=== PATIENT | male | born 1960 | race Caucasian/White ===

== ENCOUNTER → 2019-06-01 15:39 | Outpatient (CLI) | payer SELFPAY ==
--- NOTE | 2019-06-01 15:47 | XR_ITS ---
PROCEDURE: XR ANKLE WT BEARING RT MIN 3V CLINICAL INDICATION: pain Pain COMPARISON: No exams were available for comparison FINDINGS: Ankle joint has an unremarkable appearance. No fracture or dislocation. There is moderate pes planus IMPRESSION: 1. Negative ankle. 2. Pes planus Dictated by: Abbe Garcia MD 06/01/2019 18:01 Electronically signed by Abbe Garcia MD in [place] 06/01/2019 18:01
--- NOTE | 2019-06-01 15:47 | XR_ITS ---
PROCEDURE: XR ANKLE WT BEARING LT MIN 3V CLINICAL INDICATION: pain COMPARISON: No exams were available for comparison FINDINGS: No fracture or dislocation. Mortise is preserved and the talar dome has an unremarkable appearance. Incidental note made of mild pes planus IMPRESSION: 1. Negative ankle. 2. Pes planus Dictated by: Abbe Garcia MD 06/01/2019 18:02 Electronically signed by Abbe Garcia MD in [place] 06/01/2019 18:02
== END ==
PROVIDERS: PCP Pediatrics Adolescent Medicine; Visit Provider Podiatrist
DX: M25.572 Pain in left ankle and joints of left foot (principal); M25.571 Pain in right ankle and joints of right foot
CPT/HCPCS: 73610

== ENCOUNTER 2021-11-11 20:55 | Observation (INO) | payer SELFPAY ==
[2021-11-11 21:08] VITALS: BP 148/72; PULSE 78; RESP 18; TEMP 36.8; O2SAT 97; BMI 35.4
[2021-11-11 21:27] LABS: Basophils # 0.1 K/mm3 (0-0.2); Basophils % 0.5 % (0.1-2.0); Eosinophils # 0.2 K/mm3 (0.0-0.4); Hematocrit 43.3 % (42.0-52.0); Hemoglobin 14.4 g/dL (14.1-18.0); Lymphocytes # 1.5 K/mm3 (0.7-4.5); Lymphocytes % 15.1 % (10-50); Mean Corpuscular HGB Conc 33.2 g/dL (31.8-35.4); Mean Corpuscular Hemoglobin 29.9 pg (27.0-31.2); Mean Platelet Volume 8.2 fl (7.4-10.4); Monocytes # 0.6 K/mm3 (0.1-1.0); Monocytes % 5.7 % (1.7-9.3); Neutrophils # 7.4 K/mm3 (1.8-7.8); Neutrophils % 76.6 % (37.0-80.0); Platelet Count 227 K/mm3 (142-424); Red Blood Count 4.81 M/mm3 (4.60-6.20); Red Cell Distribution Width 12.9 % (11.5-17.5); White Blood Count 9.6 K/mm3 (4.8-10.8)
[2021-11-11 21:31] LABS: Alanine Aminotransferase 102 U/L (12-78); Albumin Level 3.6 g/dl (3.5-5.0); Albumin/Globulin Ratio 1.1 (1.1-1.8); Alkaline Phosphatase 218 U/L (38-126); Aspartate Amino Transferase 81 U/L (17-59); Bilirubin,Total 0.7 mg/dl (0.2-1.3); Blood Urea Nitrogen 13 mg/dl (9-20); Calcium 9.2 mg/dl (8.4-10.2); Carbon Dioxide 29 mmol/L (22.0-30.0); Creatinine Clearance Estimated 180 mL/min (50-200); Estimated Glomerular Filt Rate 115 ml/min (>60); GFR (African American) 140 ML/MIN (>60); Globulin 3.4 g/dL (1.3-3.2); Glucose 145 mg/dl (74-100); Potassium 3.6 mmoL/L (3.5-5.1); Sodium 138 mmol/L (136-145)
--- NOTE | 2021-11-11 21:31 | HMH.EDSKAF ---
ED Disposition Clinical Impression: Obesity (BMI 30-39.9), Elevated LFTs Cellulitis Qualifiers: Site of cellulitis: extremity Site of cellulitis of extremity: lower extremity Laterality: left Qualified Code(s): L03.116 - Cellulitis of left lower limb Disposition: Admitted as Observation Condition on Discharge: Fair Referrals: Wenceslao Loya MD [Primary Care Provider] - - Critical Care Critical Care Time: No Attestation: On , the high probability of a clinically significant, sudden or life threatening deterioration of the following system(s) required my full and direct attention, intervention and personal management. The time I documented below is in addition to time spent performing reported procedures but includes the following listed in this critical care notation. Medical Decision Making - Medical Records Medical records reviewed: Yes: I reviewed the patient's medical records. - Zhang Inquiry Pt receiving controlled substance: No Vital Signs: 11/11/21 21:08 Temperature 98.2 F Temperature Source Oral Pulse Rate [Apical] 78 Respiratory Rate 18 Blood Pressure [Right Arm] 148/72 H Blood Pressure Mean [Right Arm] 97 Blood Pressure Source [Right Arm] Automatic Cuff Blood Pressure Position [Right Arm] Sitting 02 Sat by Pulse Oximetry 97 Oxygen Delivery Method Room Air - Lab Data Lab results reviewed: Yes: I reviewed the patient's lab results. Lab Results 11/11/21 21:15: WBC 9.6, RBC 4.81, Hgb 14.4, Hct 43.3, MCV 90.0, MCH 29.9, MCHC 33.2, RDW 12.9, Plt Count 227, MPV 8.2, Neut % (Auto) 76.6, Lymph % (Auto) 15.1, [place] % (Auto) 5.7, Eos % (Auto) 2.0, Baso % (Auto) 0.5, Neut # (Auto) 7.4, Lymph # (Auto) 1.5, [place] # (Auto) 0.6, Eos # (Auto) 0.2, Baso # (Auto) 0.1 11/11/21 21:15: Sodium 138, Potassium 3.6, Chloride 102, Carbon Dioxide 29, Anion Gap 10.6, BUN 13, Creatinine 0.70, Estimated Creat Clear 180, Estimated GFR 115, Est GFR ( Amer) 140, Glucose 145 H, Calcium 9.2, Total Bilirubin 0.7, AST 81 H, ALT 102 H, Alkaline Phosphatase 218 H, C-Reactive Protein 169.2 H, Total Protein 7.0, Albumin 3.6, Globulin 3.4 H, Albumin/Globulin Ratio 1.1, Procalcitonin 0.098 11/11/21 21:15: ESR 47 H Result diagrams: 11/11/21 21:15 11/11/21 21:15 Orders (Tests/Meds): ED MEDICATIONS Generic Name Dose Route Start Last Admin Trade Name Freq PRN Reason Stop Dose Admin Miscellaneous 1 each 11/11/21 22:30 11/11/21 22:24 Vancomycin Consult Request NOTAPPLIC 12/11/21 22:29 1 each CONSULT PHARMACY NIC Administration ORDERS Category Date Time Status Wound Culture and Gram Stain Stat Micro 11/11/21 21:15 Results - Physician Consults Physician Consulted: sere Reason -: Admission Medical Decision Narrative: has cellulitis which has been not respnsive to abx Skin/Abscess/FB HPI - General Chief complaint: Extremity Injury, Lower Stated complaint: cellulitis left leg, hot swelling Time Seen by Provider: 11/11/21 21:31 Mode of Arrival: Ambulatory Source of Information: Patient, Spouse, Medical Record Limitations: No Limitations Description of Symptoms (Recalled from ER Triage Doc. by RN): pt states that he noticed redness in his left will Saturday and went to the [facility] ER on Saturday (11/08) and was diagnosed with Cellulitis, started on cephalexin 500mg qid and was told to return to the ER with any worsening redness or swelling/drainage. Pt states that this afternoon he noticed that the redness was swelling further up his leg and his wound on the front of his will was beginning to leak a clear drainage. Pt states that he called his PCP who recommended he come in Saturday, however, he feared that with the worsening redness he should be seen in the ER. - History of Present Illness HPI narrative: pt with progressive reddness to lt lower leg despite po abx was seen at [facility] ed - pt has been compliant with abx - pt w/o fever or vomiting - no known tick bite - no diabetes mitul
[2021-11-11 21:36] LABS: C-Reactive Protein 169.2 mg/L (0-4)
[2021-11-11 21:51] LABS: Procalcitonin 0.098 ng/mL (0.0-2.0)
[2021-11-11 21:52] LABS: Erythrocyte Sedimentation Rate 47 mm/hr (0-20)
[2021-11-11 21:59] LABS: Anion Gap 10.6 mEq/L (5-15); Chloride 102 mmol/L (98-107)
--- NOTE | 2021-11-11 22:24 | PC.NURSE ---
Dr. Cohn on the phone with Dr. Mejias
--- NOTE | 2021-11-11 22:35 | PC.NURSE ---
release of records request faxed to [facility] fax # [phone]
--- NOTE | 2021-11-11 22:44 | PC.NURSE ---
pt is not UTD on tetanus. He is refusing tetanus immunization at this time.
[2021-11-11 23:03] LABS: Lactic Acid 1.1 mmol/L (0.7-2.1)
[2021-11-11 23:26] LABS: Coronavirus 19, PCR Not Detected (NotDetected); Influenza A, PCR Not Detected (NotDetected); Influenza B, PCR Not Detected (NotDetected)
--- NOTE | 2021-11-11 23:55 | PC.NURSE ---
I walked into Mr. Ovalle' room and explained to him if he had ever been swabbed for COVID in the past his reponse was no he had never been swabbed for COVID before. I asked him if I could swab his nose due to him possibly being admitted here to [facility], that it is protocol that we have a COVID test done on all our admissions. Mr. Miles intially refused the COVID nasal swab, I explained to Mr. Miles that we couldn't admit him to the hospital without a resulted COVID test. Mr. Miles said that is fine I will stay here in the ER or go somewhere else and if I here it will be your alls fault. His was at the bedside during this conversation. I explained to him that we have protocols that we have to abide by and we have to test him for COVID prior to admission here. I reported to the ER nurses and Dr. Cohn that he refused the COVID test. Dr. Cohn went into Mr. Ovalle' room and asked him why he was refusing the COVID swab and he explained that he was worried how far the swab was going to go into his nose. Dr. Cohn told him we will do a gentle swab and that is when I walked into Mr. Ovalle' room and presented the COVID swab and gently swabbed both nostrils.
[2021-11-12] VITALS (7 sets, daily range): BP systolic 123–147; BP diastolic 69–81; PULSE 63–76; RESP 16–18; TEMP 36.4–37.3; O2SAT 95–99; BMI 35.4
--- NOTE | 2021-11-12 00:42 | PC.NURSE ---
patient up to floor via wheelchair @ this time.
--- NOTE | 2021-11-12 02:00 | PC.WOUNDNOTE ---
Left lower extremity
--- NOTE | 2021-11-12 04:52 | PC.NURSE ---
pt has rested since coming to floor, LLE noted to be red with a blister like area with yellowish drainage, has remained afebrile, remains on room air
[2021-11-12 07:22] LABS: Basophils % 0.4 % (0.1-2.0); Eosinophils # 0.2 K/mm3 (0.0-0.4); Eosinophils % 2.6 % (0.1-12.0); Hematocrit 39.6 % (42.0-52.0); Hemoglobin 13.3 g/dL (14.1-18.0); Lymphocytes # 1.3 K/mm3 (0.7-4.5); Lymphocytes % 16.6 % (10-50); Mean Corpuscular HGB Conc 33.5 g/dL (31.8-35.4); Mean Corpuscular Hemoglobin 29.9 pg (27.0-31.2); Mean Corpuscular Volume 89.3 fl (80-94); Mean Platelet Volume 8.3 fl (7.4-10.4); Monocytes # 0.6 K/mm3 (0.1-1.0); Monocytes % 7.2 % (1.7-9.3); Neutrophils # 5.9 K/mm3 (1.8-7.8); Neutrophils % 73.2 % (37.0-80.0); Platelet Count 195 K/mm3 (142-424); Red Blood Count 4.44 M/mm3 (4.60-6.20); White Blood Count 8.1 K/mm3 (4.8-10.8)
[2021-11-12 07:39] LABS: Alanine Aminotransferase 90 U/L (12-78); Albumin Level 3.1 g/dl (3.5-5.0); Alkaline Phosphatase 181 U/L (38-126); Anion Gap 7.7 mEq/L (5-15); Aspartate Amino Transferase 70 U/L (17-59); Bilirubin,Total 0.6 mg/dl (0.2-1.3); Blood Urea Nitrogen 12 mg/dl (9-20); Calcium 8.6 mg/dl (8.4-10.2); Carbon Dioxide 28 mmol/L (22.0-30.0); Chloride 105 mmol/L (98-107); Creatinine Clearance Estimated 180 mL/min (50-200); Estimated Glomerular Filt Rate 115 ml/min (>60); GFR (African American) 140 ML/MIN (>60); Globulin 3.1 g/dL (1.3-3.2); Glucose 110 mg/dl (74-100); Potassium 3.7 mmoL/L (3.5-5.1); Sodium 137 mmol/L (136-145); Total Protein,Serum 6.2 g/dl (6.3-8.2)
--- NOTE | 2021-11-12 08:15 | HMH.PHACONS ---
- Pharmacy Consult Date: 11/12/21 Time: 08:15 Referring provider: DR. BEAN Reason for Consult:: VANCOMYCIN DOSING Allergies and ADEs:: Allergies Allergy/AdvReac Type Severity Reaction Status Date / Time codeine Allergy Unknown Verified 11/12/21 00:56 Home Medications:: Home Medications Medication Instructions Recorded Confirmed Type Finasteride [Proscar] 5 mg PO DAILY 11/11/21 11/12/21 History cephALEXin [Cephalexin 500mg Tab] 500 mg PO QID 11/11/21 11/11/21 History Height: 1.78 m Weight: 112.128 kg Laboratory Results:: Laboratory Results - last 24 hr 11/11/21 21:15: WBC 9.6, RBC 4.81, Hgb 14.4, Hct 43.3, MCV 90.0, MCH 29.9, MCHC 33.2, RDW 12.9, Plt Count 227, MPV 8.2, Neut % (Auto) 76.6, Lymph % (Auto) 15.1, [place] % (Auto) 5.7, Eos % (Auto) 2.0, Baso % (Auto) 0.5, Neut # (Auto) 7.4, Lymph # (Auto) 1.5, [place] # (Auto) 0.6, Eos # (Auto) 0.2, Baso # (Auto) 0.1 11/11/21 21:15: Sodium 138, Potassium 3.6, Chloride 102, Carbon Dioxide 29, Anion Gap 10.6, BUN 13, Creatinine 0.70, Estimated Creat Clear 180, Estimated GFR 115, Est GFR ( Amer) 140, Glucose 145 H, Calcium 9.2, Total Bilirubin 0.7, AST 81 H, ALT 102 H, Alkaline Phosphatase 218 H, C-Reactive Protein 169.2 H, Total Protein 7.0, Albumin 3.6, Globulin 3.4 H, Albumin/Globulin Ratio 1.1, Procalcitonin 0.098 11/11/21 21:15: ESR 47 H 11/11/21 22:18: Lactate 1.1 11/11/21 22:32: SARS-CoV-2 (PCR) Not detected, Influenza A Untype (PCR) Not detected, Influenza Type B (PCR) Not detected 11/12/21 06:33: WBC 8.1, RBC 4.44 L, Hgb 13.3 L, Hct 39.6 L, MCV 89.3, MCH 29.9, MCHC 33.5, RDW 13.0, Plt Count 195, MPV 8.3, Neut % (Auto) 73.2, Lymph % (Auto) 16.6, [place] % (Auto) 7.2, Eos % (Auto) 2.6, Baso % (Auto) 0.4, Neut # (Auto) 5.9, Lymph # (Auto) 1.3, [place] # (Auto) 0.6, Eos # (Auto) 0.2, Baso # (Auto) 0.0 11/12/21 06:33: Sodium 137, Potassium 3.7, Chloride 105, Carbon Dioxide 28, Anion Gap 7.7, BUN 12, Creatinine 0.70, Estimated Creat Clear 180, Estimated GFR 115, Est GFR ( Amer) 140, Glucose 110 H D, Calcium 8.6, Total Bilirubin 0.6, AST 70 H, ALT 90 H, Alkaline Phosphatase 181 H, Total Protein 6.2 L, Albumin 3.1 L D, Globulin 3.1, Albumin/Globulin Ratio 1.0 L Medical History: Denies:: Cancer, Diabetes Mellitus Type 1, Diabetes Mellitus Type 2, MRSA Assessment and Plan - Assessment and plan all Dx Assessment and Plan for all problems:: Pharmacokinetic dosing service Objective: Patient: Floor: Age: 61 yo Serum creatinine: 0.70 mg/dL Height: 70.1 Inches Weight (kg): 112.1 Assessment: IBW (kg): 73.23 Dosing wt(kg): 112.1 Estimated Creatinine clearance (ml/min): 117.7 CRCL method: Cockcroft and Gault using ibw(default). Drug selected: Vancomycin Loading dose (mg): Vd (liters): 89.7 (factor used: 0.8 L/kg) Seferino (hr-1): 0.102 Half life (hrs): 6.80 CLvanco=?? 9.149 L/hr Recommended dose: 1750 mg Interval: 8 hrs Infusion time (hrs): 2.0 Predicted peak (mcg/mL): 31.6 Predicted trough (mcg/mL): 17.14 Total body weight is being used for vancomycin dosing. Recommendations: Give Vancomycin 1750 mg q 8 hrs with an expected Cpeak of 31.6 mcg/ml and an expected Ctrough of 17.14 mcg/ml AUC 0-24 /RALPH Data: RALPH 0.5 mcg/mL:?? AUC/RALPH:? 1147.7 RALPH 1.0 mcg/mL:?? AUC/RALPH:? 573.8 --------- RALPH 1.5 mcg/mL:?? AUC/RALPH:? 382.6 RALPH 2.0 mcg/mL:?? AUC/RALPH:? 286.9 Thank you for the consult, will continue to follow. -LEXUS DWYER, ROBERTOD
--- NOTE | 2021-11-12 08:19 | HMH.PHAINT ---
MEDICATION RECONCILIATION COMPLETED ON PATIENT USING EXTERNAL FILL HISTORY FROM PHARMACY. -LEXUS DWYER, ROBERTOD
--- NOTE | 2021-11-12 14:25 | HMH.HP ---
*Admission Date: 11/11/21 *Chief complaint: infected leg *History of present illness: Veto is a 61-year-old white male who has generally been in good health. About 2 weeks ago he first noticed a small red bump on his left lower leg that seemed to come and go for a few days but started becoming more red and swollen about 5 days ago. No history of injury. He went to the [place] emergency room and was started on Keflex for cellulitis . Since then the redness and swelling in his leg has gotten worse and is spread up his leg. Yesterday he started getting some drainage from the wound on his leg and therefore came to the emergency room. Because he has failed outpatient antibiotics, he is being admitted for treatment of IV vancomycin for presumed MRSA infection. He is not diabetic [facility] History Medical History: Reports:: Diabetes Mellitus Type 1 Denies:: Cancer, Diabetes Mellitus Type 2, MRSA *Have you ever received a pneumonia vaccine?: No *Have you received a flu vaccine this season?: No Other Medical History: Reports: Other (Enlarged prostate) Laterality Cases: Bilateral: Myringotomy (Ear Tubes), Tonsillectomy Amputation: No Fractures: No - *Social History Smoking Status: Never smoker Alcohol Intake: never *Occupational Status:: employed ([employer]) *Travel in the last 8 weeks: None Family Hx:: No significant family history Review of Systems - Constitutional Reports fever(s), Denies body ache(s), Denies chills - Eyes Denies change in vision - ENT Denies nasal congestion, Denies sore throat - *Cardiovascular Denies chest pain, Denies shortness of breath - *Respiratory Denies chest congestion, Denies cough - *Gastrointestinal Denies abdominal pain, Denies change in bowel habits - *Genitourinary Reports other (Decreased urinary stream) - *Musculoskeletal Denies joint pain - Integumentary/Breasts Reports other (See HPI) - *Neurologic Denies seizure-like activity Meds Home Medications Medication Instructions Recorded Confirmed Type Finasteride [Proscar] 5 mg PO DAILY 11/11/21 11/12/21 History cephALEXin [Cephalexin 500mg Tab] 500 mg PO QID 11/11/21 11/11/21 History Allergies Allergy/AdvReac Type Severity Reaction Status Date / Time codeine Allergy Unknown Verified 11/12/21 00:56 Exam Vital signs and Labs for Last 24 Hours: Temp Pulse Resp BP Pulse Ox 97.9 F 74 16 129/69 96 11/12/21 08:00 11/12/21 08:00 11/12/21 08:00 11/12/21 08:00 11/12/21 08:00 Laboratory Results - last 24 hr 11/11/21 21:15: WBC 9.6, RBC 4.81, Hgb 14.4, Hct 43.3, MCV 90.0, MCH 29.9, MCHC 33.2, RDW 12.9, Plt Count 227, MPV 8.2, Neut % (Auto) 76.6, Lymph % (Auto) 15.1, [place] % (Auto) 5.7, Eos % (Auto) 2.0, Baso % (Auto) 0.5, Neut # (Auto) 7.4, Lymph # (Auto) 1.5, [place] # (Auto) 0.6, Eos # (Auto) 0.2, Baso # (Auto) 0.1 11/11/21 21:15: Sodium 138, Potassium 3.6, Chloride 102, Carbon Dioxide 29, Anion Gap 10.6, BUN 13, Creatinine 0.70, Estimated Creat Clear 180, Estimated GFR 115, Est GFR ( Amer) 140, Glucose 145 H, Calcium 9.2, Total Bilirubin 0.7, AST 81 H, ALT 102 H, Alkaline Phosphatase 218 H, C-Reactive Protein 169.2 H, Total Protein 7.0, Albumin 3.6, Globulin 3.4 H, Albumin/Globulin Ratio 1.1, Procalcitonin 0.098 11/11/21 21:15: ESR 47 H 11/11/21 22:18: Lactate 1.1 11/11/21 22:32: SARS-CoV-2 (PCR) Not detected, Influenza A Untype (PCR) Not detected, Influenza Type B (PCR) Not detected 11/12/21 06:33: WBC 8.1, RBC 4.44 L, Hgb 13.3 L, Hct 39.6 L, MCV 89.3, MCH 29.9, MCHC 33.5, RDW 13.0, Plt Count 195, MPV 8.3, Neut % (Auto) 73.2, Lymph % (Auto) 16.6, [place] % (Auto) 7.2, Eos % (Auto) 2.6, Baso % (Auto) 0.4, Neut # (Auto) 5.9, Lymph # (Auto) 1.3, [place] # (Auto) 0.6, Eos # (Auto) 0.2, Baso # (Auto) 0.0 11/12/21 06:33: Sodium 137, Potassium 3.7, Chloride 105, Carbon Dioxide 28, Anion Gap 7.7, BUN 12, Creatinine 0.70, Estimated Creat Clear 180, Estimated GFR 115, Est GFR ( Amer) 140, Glucose 110 H D, Calcium
[2021-11-13 04:00] VITALS: BP 122/77; PULSE 64; RESP 16; TEMP 37; O2SAT 94
--- NOTE | 2021-11-13 04:32 | PC.NURSE ---
Pt has rested will this shift. Alert and oriented x4. No acute events. Lung sounds are clear bilaterally and tolerating room air well. He slept with his home CPAP on. Pt was up to chair for a few hours at the beginning of shift. LLE remains swollen and red with yellow drainage. He has had no c/o pain or discomfort. Peripheral pulses remain palpable. Remains afebrile. VSS.
[2021-11-13 05:00] VITALS: BMI 35.6
[2021-11-13 06:59] LABS: Alanine Aminotransferase 89 U/L (12-78); Albumin Level 3.1 g/dl (3.5-5.0); Alkaline Phosphatase 191 U/L (38-126); Aspartate Amino Transferase 50 U/L (17-59); Bilirubin,Indirect 0.6 mg/dL (0.0-0.9); Bilirubin,Total 0.6 mg/dl (0.2-1.3); Bilirubin,Unconjugated 0.8 mg/dL (0.0-1.1); Total Protein,Serum 6.3 g/dl (6.3-8.2)
[2021-11-13 08:00] VITALS: BP 155/82; PULSE 70; RESP 17; TEMP 36.9; O2SAT 91
[2021-11-13 09:20] LABS: Vancomycin,Trough 14.9 ug/mL (5.0-10.0)
--- NOTE | 2021-11-13 10:37 | HMH.ACPN2 ---
<Ethel Almanza - Last Filed: 11/13/21 10:37> Internal Medicine - PN: Subj *Date: 11/13/21 *Time: 10:37 Interval history: Pt feels a little better. He thinks the swelling and the redness in his left leg has improved. He states it is no longer up into the thigh. He has some discomfort. The wound continues to drain. He denies any chest pain and shortness of breath. He is able to eat without difficulty. Laboratory data this a.m. reveal a white blood cell count of 8100 with a hemoglobin of 13.3 and hematocrit of 39.6. Liver function studies have improved with an AST of 50 which is normal, ALT at 89 and alkaline phosphatase of 191. Total bilirubin is normal. Exam Vital signs and Labs for Last 24 Hours: Temp Pulse Resp BP Pulse Ox 98.5 F 70 17 155/82 H 91 L 11/13/21 08:00 11/13/21 08:00 11/13/21 08:00 11/13/21 08:00 11/13/21 08:00 Laboratory Results - last 24 hr 11/13/21 06:29: Total Bilirubin 0.6, Direct Bilirubin 0.0, Conjugated Bilirubin 0.0, Indirect Bilirubin 0.6, Unconjugated Bilirubin 0.8, AST 50 D, ALT 89 H, Alkaline Phosphatase 191 H, Total Protein 6.3, Albumin 3.1 L 11/13/21 08:24: Vancomycin Trough 14.9 H I & O for Last 24 hours: Intake & Output 11/10/21 11/11/21 11/12/21 11/13/21 11:59 11:59 11:59 11:59 Intake Total 805 / 805 2970 / 2970 Output Total 350 / 350 1700 / 1700 Balance 455 / 455 1270 / 1270 Weight 247 lb 3.2 oz 248 lb 9.6 oz Microbiology Reports for the Last 24 Hours: Microbiology 11/11/21 21:15 Leg,Left Gram Stain - Final 11/11/21 21:15 Leg,Left Wound Culture - Preliminary NO GROWTH AFTER 24 HOURS - Constitutional no acute distress Comments: Sitting up in the bed and appears comfortable. - *Routine Respiratory Exam Present: CTA bilaterally (Anteriorly and posteriorly) - *Routine Cardiovascular Exam Present: RRR - *Routine Abdominal Exam Present: soft, normoactive bowel sounds. Absent: tenderness - *Routine Extremities Exam Present: edema Comments: Right lower leg appears normal. Left lower extremity with edema of the foot up through the thigh. Erythema from the ankle up to the knee. Draining wound on anterior lower left extremity. - *Routine Neurological Exam Present: alert, oriented X3 Assessment and Plan (1) Cellulitis Status: Acute Qualifiers: Site of cellulitis: extremity Site of cellulitis of extremity: lower extremity Laterality: left Qualified Code(s): L03.116 - Cellulitis of left lower limb Category: Medical Code(s): L03.90 - Cellulitis, unspecified (2) Elevated LFTs Status: Acute Category: Medical Code(s): R79.89 - Other specified abnormal findings of blood chemistry (3) BPH (benign prostatic hyperplasia) Status: Acute Category: Medical Code(s): N40.0 - Benign prostatic hyperplasia without lower urinary tract symptoms - Assessment and plan all Dx Assessment and Plan for all problems:: Culture results are negative thus far. Continue with current antibiotic coverage. <Stevie Mejias - Last Filed: 11/14/21 13:13> Internal Medicine - PN: Subj *Date: 11/13/21 *Time: 13:12 Exam Vital signs and Labs for Last 24 Hours: Temp Pulse Resp BP Pulse Ox 98.6 F 74 18 147/85 H 93 L 11/14/21 08:00 11/14/21 08:00 11/14/21 08:00 11/14/21 08:00 11/14/21 08:00 Laboratory Results - last 24 hr 11/13/21 13:30: Vancomycin Peak 21.0 11/14/21 06:58: Sodium 136, Potassium 4.4, Chloride 105, Carbon Dioxide 27, Anion Gap 8.4, BUN 11, Creatinine 0.70, Estimated Creat Clear 182, Estimated GFR 115, Est GFR ( Amer) 140, Glucose 109 H, Calcium 8.7, Total Bilirubin 0.3, AST 42, ALT 79 H, Alkaline Phosphatase 191 H, Total Protein 6.6, Albumin 3.2 L, Globulin 3.4 H, Albumin/Globulin Ratio 0.9 L I & O for Last 24 hours: Intake & Output 11/12/21 11/13/21 11/14/21 11/15/21 11:59 11:59 11:59 11:59 Intake Total 805 / 805 3210 / 32
--- NOTE | 2021-11-13 11:14 | HMH.PTWOUND ---
Rehab Inpt Wound Evaluation Rehab IP Wound Evaluation Start: 11/13/21 08:31 Freq: ONCE Status: Active Protocol: Document 11/13/21 11:10 PHOSANTY (Rec: 11/13/21 11:14 PHORNE [id number]) Rehab PT Wound Assessment Subjective Subjective 61 yowm adm to [facility] with L CHIRAG cellulitis. He reports wound began from a cpouple little red spots on my leg, and he failed outpatient treatment with oral abx. He reports pain only with standing. He was independent with all mobility and working 10 hr shifts prior to adm. Wound Left Anterior Kim Wound Type Blister Is This a Chronic Wound No Wound Length (cm) 8.5 Wound Width (cm) 8.0 Wound Bed Appearance Beefy Red,Yellow Wound Margins Description Indistinct Surrounding Tissue Appearance Bright Red Edema Type Pitting Edema Degree 2+ Query Text:1+ Trace, Barely Detectable, Rebound 15-30 seconds 2+ Moderate, Slight Indentation, Rebound 10-20 seconds 3+ Deep, Deeper Indentation, Rebound > 30 seconds 4+ Very Deep, Rebound > 60 seconds Edema Appearance Weeping Wound Drainage Description Yellow Drainage Amount Moderate Drainage Odor No Odor Wound Topical Solution/Irrigant Saline Irrigant Primary Dressing Unna Boot Wound Secondary Dressing Type Gauze Roll/Wrap,Adhering Gauze Roll Wound Debridement Method Gauze,Mechanical Wound Debridement Amount of Tissue Minimal Removed Dressing Change Patient Tolerance Tolerated Well Plan/Recommendation Comment Continue unna boot at this time changed every 3-4 days depending on drainage amts. Eval Complexity Eval Charge Codes 61733 - Moderate Complexity PHYSICIAN CERTIFICATION: I certify the specified therapy services for Veto Miles are required, authorized, and reviewed every 30 days.
--- NOTE | 2021-11-13 14:23 | HMH.PHACONS ---
- Pharmacy Consult Date: 11/13/21 Time: 14:23 Referring provider: DR WEBSTER Reason for Consult:: VANCOMYCIN DOSING Allergies and ADEs:: Allergies Allergy/AdvReac Type Severity Reaction Status Date / Time codeine Allergy Unknown Verified 11/12/21 00:56 Home Medications:: Home Medications Medication Instructions Recorded Confirmed Type Finasteride [Proscar] 5 mg PO DAILY 11/11/21 11/12/21 History cephALEXin [Cephalexin 500mg Tab] 500 mg PO QID 11/11/21 11/11/21 History Height: 1.78 m Weight: 112.763 kg Laboratory Results:: Laboratory Results - last 24 hr 11/13/21 06:29: Total Bilirubin 0.6, Direct Bilirubin 0.0, Conjugated Bilirubin 0.0, Indirect Bilirubin 0.6, Unconjugated Bilirubin 0.8, AST 50 D, ALT 89 H, Alkaline Phosphatase 191 H, Total Protein 6.3, Albumin 3.1 L 11/13/21 08:24: Vancomycin Trough 14.9 H 11/13/21 13:30: Vancomycin Peak 21.0 Medical History: Reports:: Diabetes Mellitus Type 1 Denies:: Cancer, Diabetes Mellitus Type 2, MRSA Assessment and Plan (1) Cellulitis Status: Acute Qualifiers: Site of cellulitis: extremity Site of cellulitis of extremity: lower extremity Laterality: left Qualified Code(s): L03.116 - Cellulitis of left lower limb Category: Medical Code(s): L03.90 - Cellulitis, unspecified (2) Elevated LFTs Status: Acute Category: Medical Code(s): R79.89 - Other specified abnormal findings of blood chemistry (3) BPH (benign prostatic hyperplasia) Status: Acute Category: Medical Code(s): N40.0 - Benign prostatic hyperplasia without lower urinary tract symptoms - Assessment and plan all Dx Assessment and Plan for all problems:: VANCOMYCIN PK LEVELS 11/13/21 08:24: Vancomycin Trough 14.9 11/13/21 13:30: Vancomycin Peak 21.0 VANCOMYCIN THERAPEUTIC LEVELS OBTAINED TODAY. PATIENT'S TROUGH WAS 14.9 MCG/ML (11/13/21 @ 08:24) AND PEAK WAS 21.0 MCG/ML (11/13/21 @ 13:30). THE PEAK WAS DRAWN AN HOUR LATE. BASED ON THE TROUGH, THE RECOMMENDATION IS TO CONTINUE THE CURRENT THERAPY OF VANCOMYCIN 1750 MG IV EVERY 8 HOURS.
[2021-11-13 16:00] VITALS: BP 140/85; PULSE 65; RESP 16; TEMP 37.1; O2SAT 93
--- NOTE | 2021-11-13 18:37 | PC.NURSE ---
PT IS AOX4, ABLE TO MAKE NEEDS KNOWN TO STAFF, HAS TOLERATED SITING UP TO A CHAIR FOR MOST OF SHIFT, TOLERATING DIET WELL, UNNA BOOT NOTED TO LOWER EXTREMITY. HAS NOT REQUIRED O2 SUPPORT THIS SHIFT.
[2021-11-13 20:00] VITALS: BP 144/47; PULSE 69; RESP 16; TEMP 37; O2SAT 96
[2021-11-14 04:00] VITALS: BP 133/71; PULSE 71; RESP 16; TEMP 37; O2SAT 98
--- NOTE | 2021-11-14 04:06 | PC.NURSE ---
Pt is alert and oriented x4, pt uses CPAP from home during the night. Pt uses urinal independently, ambulates to the bathroom with standby assist. Pt has unna boot noted to left lower leg, pedal pulses palpated. Pt has had no complaints this shift.
[2021-11-14 04:54] VITALS: BMI 35.6
[2021-11-14 07:41] LABS: Alanine Aminotransferase 79 U/L (12-78); Albumin Level 3.2 g/dl (3.5-5.0); Albumin/Globulin Ratio 0.9 (1.1-1.8); Alkaline Phosphatase 191 U/L (38-126); Anion Gap 8.4 mEq/L (5-15); Aspartate Amino Transferase 42 U/L (17-59); Bilirubin,Total 0.3 mg/dl (0.2-1.3); Blood Urea Nitrogen 11 mg/dl (9-20); Calcium 8.7 mg/dl (8.4-10.2); Carbon Dioxide 27 mmol/L (22.0-30.0); Chloride 105 mmol/L (98-107); Creatinine Clearance Estimated 182 mL/min (50-200); Estimated Glomerular Filt Rate 115 ml/min (>60); GFR (African American) 140 ML/MIN (>60); Globulin 3.4 g/dL (1.3-3.2); Glucose 109 mg/dl (74-100); Potassium 4.4 mmoL/L (3.5-5.1); Sodium 136 mmol/L (136-145); Total Protein,Serum 6.6 g/dl (6.3-8.2)
[2021-11-14 08:00] VITALS: BP 147/85; PULSE 74; RESP 18; TEMP 37; O2SAT 93
--- NOTE | 2021-11-14 08:22 | HMH.ACPN2 ---
<Ethel Almanza - Last Filed: 11/14/21 08:22> Internal Medicine - PN: Subj *Date: 11/14/21 *Time: 08:22 Interval history: Patient overall feels better. He states he did sleep last night. He had it a boot placed on the left lower extremity yesterday. He is has been out of bed and ambulates independently. He eats without difficulty. He does have to void frequently. IV fluids remained at 75 an hour. Today's labs show normal renal function. Liver function studies continue to improve. With an AST of 42 and ALT of 79. Blood and wound cultures show no growth. Exam Vital signs and Labs for Last 24 Hours: Temp Pulse Resp BP Pulse Ox 98.6 F 71 16 133/71 98 11/14/21 04:00 11/14/21 04:00 11/14/21 04:00 11/14/21 04:00 11/14/21 04:00 Laboratory Results - last 24 hr 11/13/21 08:24: Vancomycin Trough 14.9 H 11/13/21 13:30: Vancomycin Peak 21.0 11/14/21 06:58: Sodium 136, Potassium 4.4, Chloride 105, Carbon Dioxide 27, Anion Gap 8.4, BUN 11, Creatinine 0.70, Estimated Creat Clear 182, Estimated GFR 115, Est GFR ( Amer) 140, Glucose 109 H, Calcium 8.7, Total Bilirubin 0.3, AST 42, ALT 79 H, Alkaline Phosphatase 191 H, Total Protein 6.6, Albumin 3.2 L, Globulin 3.4 H, Albumin/Globulin Ratio 0.9 L I & O for Last 24 hours: Intake & Output 11/11/21 11/12/21 11/13/21 11/14/21 11:59 11:59 11:59 11:59 Intake Total 805 / 805 3210 / 3210 2474 / 2474 Output Total 350 / 350 1700 / 1700 2250 / 2250 Balance 455 / 455 1510 / 1510 224 / 224 Weight 247 lb 3.2 oz 248 lb 9.6 oz 249 lb Microbiology Reports for the Last 24 Hours: Microbiology 11/11/21 22:18 Blood Blood Culture - Preliminary NO GROWTH AFTER 48 HOURS 11/11/21 22:18 Blood Blood Culture - Preliminary NO GROWTH AFTER 48 HOURS 11/11/21 21:15 Leg,Left Gram Stain - Final 11/11/21 21:15 Leg,Left Wound Culture - Preliminary NO GROWTH AFTER 48 HOURS - Constitutional no acute distress - *Routine Respiratory Exam Present: wheezes (infrequent wheeze) - *Routine Cardiovascular Exam Present: RRR - *Routine Abdominal Exam Present: soft, normoactive bowel sounds. Absent: tenderness - *Routine Extremities Exam Present: edema Comments: No edema of the right lower leg. Left lower extremity with Unna boot in place. Calf circumference is decreased. Less edema and erythema above or below the Unna boot. He has good bilateral pedal pulses. - *Routine Neurological Exam Present: alert, oriented X3 Assessment and Plan (1) Cellulitis Status: Acute Qualifiers: Site of cellulitis: extremity Site of cellulitis of extremity: lower extremity Laterality: left Qualified Code(s): L03.116 - Cellulitis of left lower limb Category: Medical Code(s): L03.90 - Cellulitis, unspecified (2) Elevated LFTs Status: Acute Category: Medical Code(s): R79.89 - Other specified abnormal findings of blood chemistry (3) BPH (benign prostatic hyperplasia) Status: Acute Category: Medical Code(s): N40.0 - Benign prostatic hyperplasia without lower urinary tract symptoms - Assessment and plan all Dx Assessment and Plan for all problems:: Patient is ready for discharge with p.o. antibiotics <Stevie Mejias - Last Filed: 11/14/21 13:14> Internal Medicine - PN: Subj *Date: 11/14/21 *Time: 13:13 Exam Vital signs and Labs for Last 24 Hours: Temp Pulse Resp BP Pulse Ox 98.6 F 74 18 147/85 H 93 L 11/14/21 08:00 11/14/21 08:00 11/14/21 08:00 11/14/21 08:00 11/14/21 08:00 Laboratory Results - last 24 hr 11/13/21 13:30: Vancomycin Peak 21.0 11/14/21 06:58: Sodium 136, Potassium 4.4, Chloride 105, Carbon Dioxide 27, Anion Gap 8.4, BUN 11, Creatinine 0.70, Estimated Creat Clear 182, Estimated GFR 115, Est GFR ( Amer) 140, Glucose 109 H, Calcium 8.7, Total Bilirubin 0.3, AST 42, ALT 79 H, Alkaline Phosphata
--- NOTE | 2021-11-14 09:30 | HMH.PHAINT ---
DISCHARGE MEDICATION COUNSELING PROVIDED. DISCUSSED STOPPING THE KEFLEX AND THE NEW SHORT-COURSE ZYVOX PRESCRIPTION. DISCUSSED TO TAKE TWICE DAILY WITH OR WITHOUT FOOD, MAY CAUSE UPSET STOMACH/VOMITING/DIARRHEA SO TAKING WITH FOOD MAY HELP, RARELY COULD CAUSE RASH. PATIENT ASKED HOW LONG HE WAS SUPPOSED TO TAKE AND WAS ADVISED FOR 10 DAYS. WAS ALSO ADVISED TO START TONIGHT SINCE HE RECEIVED A VANCOMYCIN DOSE PRIOR TO DISCHARGE. PATIENT EXPRESSED CONCERN OVER COPAY AT [facility] AND WAS LOOKING IN TO HAVING PRESCRIPTION FILLED ELSEWHERE. WAS ADVISED TO LET NURSE KNOW WHERE HE ULTIMATELY WANTS THE PRESCRIPTION SENT AND TO HAVE NURSE CALL PHARMACY TO CHANGE THE PRESCRIPTION DESTINATION. PATIENT ENDORSED NO FURTHER QUESTIONS AT THIS TIME.
--- NOTE | 2021-11-14 09:31 | PC.NURSE ---
patient currently getting iv vancomycin before discharge. patient is to leave unna boots on until follow up appointment with primary care porvider for them to decide if they wish to continue that treatment.
--- NOTE | 2021-11-14 22:13 | HMH.DCSUM ---
General - General Admission date:: 11/12/21 <Stevie Mejias - 11/16/21 22:42> 11/12/21 <Jennifer Dupont - 11/14/21 22:17> Discharge date: 11/14/21 <CresencioJennifer - 11/14/21 22:17> HPI HPI: Veto is a 61-year-old white male who has generally been in good health. About 2 weeks ago he first noticed a small red bump on his left lower leg that seemed to come and go for a few days but started becoming more red and swollen about 5 days ago. No history of injury. He went to the [facility] emergency room and was started on Keflex for cellulitis . Since then the redness and swelling in his leg has gotten worse and is spread up his leg. Yesterday he started getting some drainage from the wound on his leg and therefore came to the emergency room. Because he has failed outpatient antibiotics, he is being admitted for treatment of IV vancomycin for presumed MRSA infection. He is not diabetic <Jennifer Dupont - 11/14/21 22:17> Hospital Course Hospital Course: The patient had cellulitis of her left lower leg which failed outpatient treatment. He was empirically started on IV vancomycin. He had mildly elevated liver functions of undetermined etiology. He was continued on finasteride for his history of BPH. By 11/13/2021, the swelling and redness in his leg did improve. LFTs improved. PT was consulted for wound evaluation. His wound and blood culture showed no growth, likely inhibited by the oral antibiotics he was taking prior to admission. He improved with MRSA coverage and was stable to be discharged home on Zyvox. He will follow-up with his PCP in 3 to 4 days. <Jennifer Dupont - 11/14/21 22:17> Objective Vital signs: Temp Pulse Resp BP Pulse Ox 98.6 F 74 18 147/85 H 93 L 11/14/21 08:00 11/14/21 08:00 11/14/21 08:00 11/14/21 08:00 11/14/21 08:00 <MagalieStevie Fei - 11/16/21 22:42> Temp Pulse Resp BP Pulse Ox 98.6 F 74 18 147/85 H 93 L 11/14/21 08:00 11/14/21 08:00 11/14/21 08:00 11/14/21 08:00 11/14/21 08:00 <Jennifer Dupont - 11/14/21 22:17> Narrative: - Constitutional no acute distress - *Routine Respiratory Exam Present: wheezes (infrequent wheeze) - *Routine Cardiovascular Exam Present: RRR - *Routine Abdominal Exam Present: soft, normoactive bowel sounds. Absent: tenderness - *Routine Extremities Exam Present: edema Comments: No edema of the right lower leg. Left lower extremity with Unna boot in place. Calf circumference is decreased. Less edema and erythema above or below the Unna boot. He has good bilateral pedal pulses. - *Routine Neurological Exam Present: alert, oriented X3 <Jennifer Dupont - 11/14/21 22:17> Results Labs on day of discharge: Preliminary micro results at discharge 11/11/21 22:18 Blood Culture - Preliminary Blood NO GROWTH AFTER 48 HOURS 11/11/21 22:18 Blood Culture - Preliminary Blood NO GROWTH AFTER 48 HOURS <Stevie Mejias - 11/16/21 22:42> Labs from last 24 hours 11/14/21 06:58 Sodium 136 Potassium 4.4 Chloride 105 Carbon Dioxide 27 Anion Gap 8.4 BUN 11 Creatinine 0.70 Estimated Creat Clear 182 Estimated GFR 115 Est GFR ( Amer) 140 Glucose 109 H Calcium 8.7 Total Bilirubin 0.3 AST 42 ALT 79 H Alkaline Phosphatase 191 H Total Protein 6.6 Albumin 3.2 L Globulin 3.4 H Albumin/Globulin Ratio 0.9 L Preliminary micro results at discharge 11/11/21 21:15 Wound Culture - Preliminary Leg,Left NO GROWTH AFTER 72 HOURS 11/11/21 22:18 Blood Culture - Preliminary Blood NO GROWTH AFTER 48 HOURS 11/11/21 22:18 Blood Culture - Preliminary Blood NO GROWTH AFTER 48 HOURS <Jennifer Dupont - 11/14/21 22:17> DS: Diagnosis - Discharge Diagnosis (1) Cellulitis Status: Acute (2) Elevated LFTs Status: Acute (3) BPH (benign prostatic hyperplasia) Status: Acute <Jennifer Dupont - 11/14/21 22:13> (1)
--- NOTE | 2021-11-15 11:50 | CARE MANAGER ---
Spoke with patient following hospital discharge. 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 He denies any issues or concerns. Transferred to nursing on 2nd floor as he is missing a medication. NIC White
== END 2021-11-14 13:21 | disposition home or self-care (01) ==
LOC: ER 22:44 → 2ND 11-12 00:41
PROVIDERS: Admitting Provider Family Medicine; Emergency Provider Emergency Medicine; PCP Family Medicine; Visit Provider Family Medicine
DX: L03.116 Cellulitis of left lower limb; N40.0 Benign prostatic hyperplasia without lower urinary tract symptoms; Z20.822 Contact with and (suspected) exposure to COVID-19
CPT/HCPCS: 36415; 80053; 80076; 80202; 83605; 84145; 85025; 85651; 86140; 87040; 87070; 87077; 87186; 87205; 99285; C9803; G0378; J3370; U0003; U0005

== ENCOUNTER → 2021-12-15 10:59 | Outpatient (CLI) | payer SELFPAY ==
--- NOTE | 2021-12-15 11:11 | US_ITS ---
FINAL REPORT CLINICAL HISTORY: ABCESS OF LT LEG FINDINGS: Sonographic images were obtained of the area of interest at the anterior aspect of the left lower leg. There is extensive subcutaneous soft tissue edema. No abscess is identified. IMPRESSION: Extensive subcutaneous soft tissue edema with no abscess. Reviewed, Interpreted and Dictated by Anthony Thomas MD Transcribed by Jazmin Quiñones Authenticated and [facility]
== END ==
PROVIDERS: Visit Provider Family Medicine
DX: L02.416 Cutaneous abscess of left lower limb
CPT/HCPCS: 76882

== ENCOUNTER 2022-01-14 22:46 | Emergency (ER) | payer SELFPAY ==
[2022-01-14 22:47] VITALS: BP 159/110; PULSE 109; RESP 24; TEMP 36.8; O2SAT 100; BMI 34.8
--- NOTE | 2022-01-14 23:22 | PC.NURSE ---
NIC White and NIC Christianson at
--- NOTE | 2022-01-14 23:30 | PC.NURSE ---
Updated Dr. Cohn on pt condition and triage. Called [facility] for med records.
--- NOTE | 2022-01-14 23:32 | HMH.EDUROGM ---
Discharge Plan Disposition Patient Disposition: Home, Self-Care Prescriptions Prescriptions: No Action finasteride 5 MG tablet 5 mg PO DAILY linezolid 600 MG tablet 600 mg PO BID Referrals Follow up/Referrals: Wenceslao Loya MD [Primary Care Provider] - See instructions Clinical Impressions Clinical Impression: Hematuria Instructions Patient Instructions: How to Care for Your Rob Catheter -- Male Discharge ED Provider: Hammad Cohn Male Urogenital HPI General Chief complaint: Urogenital-Male Stated complaint: surg 12/26 not urinating Time Seen by Provider: 01/14/22 23:32 Mode of Arrival: Family Vehicle Source of Information: Patient and Spouse Limitations: Language Barrier Description of Symptoms (Recalled from ER Triage Doc. by RN): Pt c/o difficulty urinating and urgogenital pain that radiates up to L flank. He had a History of Present Illness HPI Narrative: hx of urology procedure on 12/26 and rob removed 12/28 and has diff with urinating and has blood in urine - records were reviewed Complaint: dysuria and other (hematuria ) Onset (ago): hour(s) Duration: intermittent Severity: moderate recent surgery Reports blood in urine Related Data Sexually active: Yes Home Medications Medication Instructions Recorded Confirmed finasteride 5 mg tablet 5 mg PO DAILY PROSTATE 11/11/21 01/14/22 linezolid 600 mg tablet 600 mg PO BID Infection 01/14/22 01/14/22 Allergies Allergy/AdvReac Type Severity Reaction Status Date / Time codeine Allergy Unknown Verified 11/12/21 00:56 PFSH PFSH Social History Smoking Status: Never smoker alcohol intake: never current occupational status: employed ([employer]) Travel in the last 8 weeks: None caffeine: No ROS Obtained: Yes All systems reviewed & no additional complaints except as documented Physical Exam General General appearance: alert Head Head exam: normocephalic Eye Eye exam: Present PERRL and EOMI ENT ENT exam: Present mucous membranes moist Neck Neck exam: Present trachea midline Respiratory Respiratory exam: Absent respiratory distress Cardiovascular Cardiovascular exam: Present regular rate Abdominal Exam Abdominal exam: Present soft Extremities Exam Extremities exam: Absent calf tenderness Neurological Exam Neurological exam: Present alert, oriented X3 and CN II-XII intact Psychiatric Psychiatric exam: Present normal affect Skin Skin exam: Absent rash Medical Decision Making Medical Records Medical records reviewed: Yes I reviewed the patient's medical records. Zhang Inquiry Pt receiving controlled substance: No Vital Signs: 01/14/22 22:47 01/15/22 00:00 01/15/22 00:31 Temperature 98.3 F Temperature Source Oral Pulse Rate 72 76 Pulse Rate [Right] 109 H Respiratory Rate 24 Blood Pressure 114/78 137/84 Blood Pressure [Right Arm] 159/110 H Blood Pressure Mean [Right Arm] 126 Blood Pressure Source [Right Arm] Automatic Cuff 02 Sat by Pulse Oximetry 100 100 98 Oxygen Delivery Method Room Air Room Air Room Air 01/15/22 01:01 01/15/22 01:30 01/15/22 02:00 Temperature Temperature Source Pulse Rate 75 65 57 L Pulse Rate [Right] Respiratory Rate Blood Pressure 111/71 104/70 L 106/68 L Blood Pressure [Right Arm] Blood Pressure Mean [Right Arm] Blood Pressure Source [Right Arm] 02 Sat by Pulse Oximetry 94 L 98 99 Oxygen Delivery Method Room Air Room Air Room Air 01/15/22 03:00 01/15/22 04:00 Temperature Temperature Source Pulse Rate 56 L 55 L Pulse Rate [Right] Respiratory Rate Blood Pressure 108/68 L 101/61 L Blood Pressure [Right Arm] Blood Pressure Mean [Right Arm] Blood Pressure Source [Right Arm] 02 Sat by Pulse Oximetry 98 99 Oxygen Delivery Method Room Air Room Air Lab Data Lab results reviewed: Yes I reviewed the patient's lab results. Lab Results 01/14/22 23:32: WBC 10.9 H, RBC 4.29 L, Hgb 12.9 L, Hct 3
--- NOTE | 2022-01-14 23:37 | CT_ITS ---
PROCEDURE INFORMATION: Exam: CT Abdomen And Pelvis With Contrast; Liver Exam date and time: 01/15/2022 12:03 AM Age: 62 years old Clinical indication: Abdominal pain; Prior surgery; Surgery date: <1 month; Surgery type: Prostate surgery on 12/26/2021; Additional info: Gross hematuria and retent S/P surg 12/26 TECHNIQUE: Imaging protocol: Computed tomography of the abdomen and pelvis with intravenous contrast. Exam focused on the liver. Radiation optimization: All CT scans at this facility use at least one of these dose optimization techniques: automated exposure control; mA and/or kV adjustment per patient size (includes targeted exams where dose is matched to clinical indication); or iterative reconstruction. Contrast material: ISOVUE; Contrast volume: 75 ml; Contrast route: IV; COMPARISON: US EXTREMITY LT LIMITED 12/15/2021 11:13 AM FINDINGS: Liver: Normal. No mass. Gallbladder and bile ducts: Gallstones. Pancreas: Normal. No ductal dilation. Spleen: Normal. No splenomegaly. Adrenal glands: Normal. No mass. Kidneys and ureters: Nonobstructing right renal stone. Punctate non-obstructing left renal stone. No hydronephrosis. Stomach and bowel: Normal. No obstruction. No mucosal thickening. Appendix: No evidence of appendicitis. Intraperitoneal space: Unremarkable. No free air. No significant fluid collection. Lymph nodes: Unremarkable. No enlarged lymph nodes. Vasculature: Unremarkable. No abdominal aortic aneurysm. Urinary bladder: Martines catheter in the urinary bladder. 7.5 x 8.5 cm mass in the urinary bladder which could indicate a blood clot or malignancy. Reproductive: Martines catheter balloon is seen in the prostatic urethra. Bones/joints: Unremarkable. No acute fracture. No dislocation. Soft tissues: Small umbilical hernia with fat. IMPRESSION: 1. Gallstones. 2. Nonobstructing right renal stone. No hydronephrosis. 3. 7.5 x 8.5 cm mass in the urinary bladder which could indicate a blood clot or malignancy. 4. Martines catheter balloon is seen in the prostatic urethra.
--- NOTE | 2022-01-14 23:42 | PC.NURSE ---
reviewing records from [facility]
[2022-01-14 23:48] LABS: Chloride 104 mmol/L (98-107); Potassium 4.3 mmoL/L (3.5-5.1); Sodium 136 mmol/L (136-145)
[2022-01-14 23:49] LABS: Basophils # 0.1 K/mm3 (0-0.2); Basophils % 0.6 % (0.1-2.0); Eosinophils # 0.1 K/mm3 (0.0-0.4); Hematocrit 38.7 % (42.0-52.0); Hemoglobin 12.9 g/dL (14.1-18.0); Lymphocytes # 1.8 K/mm3 (0.7-4.5); Lymphocytes % 16.2 % (10-50); Mean Corpuscular HGB Conc 33.3 g/dL (31.8-35.4); Mean Corpuscular Volume 90.2 fl (80-94); Mean Platelet Volume 8.7 fl (7.4-10.4); Monocytes # 0.4 K/mm3 (0.1-1.0); Monocytes % 4.1 % (1.7-9.3); Neutrophils # 8.5 K/mm3 (1.8-7.8); Neutrophils % 78.1 % (37.0-80.0); Platelet Count 316 K/mm3 (142-424); Red Blood Count 4.29 M/mm3 (4.60-6.20); Red Cell Distribution Width 15.6 % (11.5-17.5); White Blood Count 10.9 K/mm3 (4.8-10.8)
[2022-01-14 23:51] LABS: Alanine Aminotransferase 24 U/L (12-78); Albumin Level 3.6 g/dl (3.5-5.0); Albumin/Globulin Ratio 1.3 (1.1-1.8); Alkaline Phosphatase 101 U/L (38-126); Anion Gap 15.3 mEq/L (5-15); Aspartate Amino Transferase 36 U/L (17-59); Bilirubin,Total 0.4 mg/dl (0.2-1.3); Blood Urea Nitrogen 15 mg/dl (9-20); Calcium 8.4 mg/dl (8.4-10.2); Carbon Dioxide 21 mmol/L (22.0-30.0); Creatinine Clearance Estimated 180 mL/min (50-200); Estimated Glomerular Filt Rate 115 ml/min (>60); GFR (African American) 139 ML/MIN (>60); Globulin 2.7 g/dL (1.3-3.2); Glucose 174 mg/dl (74-100); Total Protein,Serum 6.3 g/dl (6.3-8.2)
--- NOTE | 2022-01-14 23:52 | PC.NURSE ---
Radiology notified that pt's chemistry panel is resulted
[2022-01-15] VITALS (8 sets, daily range): BP systolic 100–137; BP diastolic 61–84; PULSE 55–76; RESP 17; TEMP 36.9; O2SAT 94–100
--- NOTE | 2022-01-15 | PC.NURSE ---
Pt to CT scan via stretcher
--- NOTE | 2022-01-15 | PC.NURSE ---
Patient rounded on. Still complaining of severe bladder spasms.
--- NOTE | 2022-01-15 02:15 | PC.NURSE ---
Martines drained at this time, 2,850ml removed. Pt comfortable. Denies any pain, pressure, or n/v.
--- NOTE | 2022-01-15 03:07 | PC.NURSE ---
Pt comfortable. outside in car to to get some sleep . Drained rob bag, 2,550 ml removed. Less large clots and dark pink.
--- NOTE | 2022-01-15 03:44 | PC.NURSE ---
6L CBI complete. drained 1,900ml of increasingly light pink urine with few small clots . Total urinary output is 1,300ml at this time. Drained
[2022-01-15 04:06] LABS: Microscopic, Urine URINE MICROSCOPIC (MICROSCOPIC)
[2022-01-15 04:08] LABS: Appearance,Urine TURBID (Clear); Bilirubin,Urine Negative (Negative); Blood, Urine 3+ (Negative); Color,Urine RED (Yellow); Glucose,Urine (UA) Negative (Negative); Ketones,Urine 2+ (Negative); Leukocyte Esterase,Urine Negative (Negative); Nitrate,Urine Negative (Negative); Protein,Urine 2+ (Negative); Specific Gravity, Urine 1.025 (1.005-1.030); Urobilinogen,Urine 0.2 EU/dl (0.2)
[2022-01-15 04:10] LABS: RBC,Urine TNTC #/hpf (0-3)
--- NOTE | 2022-01-15 04:37 | PC.NURSE ---
Pt continues to make some urine, gross hematuria noted. Pt denies any pain or pressure. Called radiology and asked for disc per pt. Disc obtained.
--- NOTE | 2022-01-15 05:34 | PC.NURSE ---
After changing lrg cath bag to leg bag, pt began to have a bladder spasm of danica blood around rob cath & clot passage. Placed another lrg rob bag and manually irrigated rob. Pt reported relief and rob draining well. Gave instructions on cleaning, rob cath care, and d/c if neccessary. But, per Dr. Cohn keep rob in place and follow up with his urologist.
== END 2022-01-15 05:40 | disposition home or self-care (01) ==
PROVIDERS: Emergency Provider Emergency Medicine; PCP Family Medicine
DX: R31.9 Hematuria, unspecified (principal); Z79.899 Other long term (current) drug therapy; Z88.6 Allergy status to analgesic agent
CPT/HCPCS: 74177; 80053; 81001; 85025; 96374; 96375; 99284; J2405; Q9967